=== PATIENT | female | born 1995 | race Caucasian/White ===

== ENCOUNTER 2017-09-14 06:34 | Emergency (ER) | payer BC ==
[~2017-09-14] VITALS: Ht 157.5 cm; Wt 59.5 kg
[2017-09-14 06:39] VITALS: BP 118/67; PULSE 105; RESP 18; TEMP 97.8; O2SAT 99
[2017-09-14] MEDS ORDERED: SODIUM CHLOR 0.9% 1000 ML INJ 1,000 ML IV ONE (07:08)
--- NOTE | 2017-09-14 07:08 | PD ---
HPI Chief Complaint: Flank/Kidney Pain Time Seen by Provider: 07:06 Travel History International Travel<30 days: No Contact w/Intl Traveler<30days: No Traveled to known affect area: No History of Present Illness HPI 21-year-old female came to the emergency room with her mother with history of right-sided flank pain that started suddenly this morning. Patient has been very uncomfortable and says the pain is like a burning sensation from the right flank radiating down to her right lower quadrant. Patient says she has never experienced pain like this before. She is nauseous but has not vomited. No aggravating or relieving factors identified for the pain. Vital signs are stable. She is otherwise a healthy child. She has not urinated and cannot comment on hematuria at this point. [facility] Past Medical History Narrative Medical List of her past medical, surgical, social and family history is reviewed from the nursing note. Medical History: Denies Significant Hx Diminished Hearing: No Tetanus Vaccination: Unknown Influenza Vaccination: No ?: Not LMP: 08/30/17 Past Surgical History Surgical History: No Previous Surgery Other Surgery: Yes (adnoids) Social History Alcohol Use: No Tobacco Use: No Substance Use: No Allergies-Medications (Allergen,Severity, Reaction): Coded Allergies: No Known Allergies (Verified Allergy, Unknown, 09/14/17) Comments No known drug allergies. Reported Meds & Prescriptions Reported Meds & Active Scripts Active Ibuprofen 600 Mg Tab 600 Mg PO Q6H PRN Narrative Medication List of her home medications reviewed from the nursing note Review of Systems Except as stated in HPI: all other systems reviewed are Neg Gastrointestinal: Positive: Nausea Genitourinary: Positive: Flank Pain Physical Exam Narrative GENERAL: Awake, alert, anxious, moderate to significant distress SKIN: Focused skin assessment warm/dry. HEAD: Atraumatic. Normocephalic. EYES: Pupils equal and round. No scleral icterus. No injection or drainage. ENT: No nasal bleeding or discharge. Mucous membranes pink and moist. NECK: Trachea midline. No JVD. CARDIOVASCULAR: Regular rate and rhythm. No murmur appreciated. RESPIRATORY: No accessory muscle use. Clear to auscultation. Breath sounds equal bilaterally. GASTROINTESTINAL: Abdomen soft, non-tender, nondistended. Hepatic and splenic margins not palpable. MUSCULOSKELETAL: No obvious deformities. No clubbing. No cyanosis. No edema. NEUROLOGICAL: Awake and alert. No obvious cranial nerve deficits. Motor grossly within normal limits. Normal speech. PSYCHIATRIC: Appropriate mood and affect; insight and judgment normal. Data Data Last Documented VS Vital Signs Date Time Temp Pulse Resp B/P (MAP) Pulse Ox O2 Delivery O2 Flow Rate FiO2 09/14/17 11:05 09/14/17 10:58 87 18 98 Room Air 09/14/17 06:39 97.8 Orders Orders Complete Blood Count With Diff (09/14/17 07:08) Comprehensive Metabolic Panel (09/14/17 07:08) Urinalysis - C+S If Indicated (09/14/17 07:08) Ed Urine Pregnancytest Poc (09/14/17 07:08) Ct Abd/Pel W/O Iv Contrast (09/14/17 07:08) Ecg Monitoring (09/14/17 07:08) Iv Access Insert/Monitor (09/14/17 07:08) Ketorolac Inj (Toradol Inj) (09/14/17 07:15) Sodium Chloride 0.9% Flush (Ns Flush) (09/14/17 07:15) Sodium Chlor 0.9% 1000 Ml Inj (Ns 1000 M (09/14/17 07:08) Metoclopramide Inj (Reglan Inj) (09/14/17 07:15) Morphine Inj (Morphine Inj) (09/14/17 07:30) Urine Culture (09/14/17 08:07) Nitrofurantoin Monohyd Macrocr (Macrobid (09/14/17 08:45) Us Pelvis Comp W Doppler (09/14/17 ) Ed Discharge Order (09/14/17 10:53) Labs Laboratory Tests Test 09/14/17 07:15 09/14/17 08:07 White Blood Count 6.3 TH/MM3 Red Blood Count 4.32 MIL/MM3 Hemoglobin 13.5 GM/DL Hematocrit 40.4 % Mean Corpuscular Volume 93.6 FL Mean Corpuscular Hemoglobin 31.2 PG Mean Corpuscular Hemoglobin Concent 33.3 % Red Cell Distribution Width 11.9 % Platelet Count 267 TH/MM3 Mean Platelet Volume 8.1 FL Neutrophils (%) (Auto) 57.0 % Lymphocytes (%) (Auto) 34.7 % Monocytes (%) (Auto) 5.8 % Eosinophils (%) (Auto) 1.8 % Basophils (%) (Auto) 0.7 % Neutrophils # (Auto) 3.6 TH/MM3 Lymphocytes # (Auto) 2.2 TH/MM3 Monocytes # (Auto) 0.4 TH/MM3 Eosinophils # (Auto) 0.1 TH/MM3 Basophils # (Auto) 0.0 TH/MM3 CBC Comment DIFF FINAL Differential Comment Blood Urea Nitrogen 10 MG/DL Creatinine 0.80 MG/DL Random Glucose 108 MG/DL Total Protein 7.1 GM/DL Albumin 3.6 GM/DL Calcium Level 8.7 MG/DL Alkaline Phosphatase 53 U/L Aspartate Amino Transf (AST/SGOT) 15 U/L Alanine Aminotransferase (ALT/SGPT) 21 U/L Total Bilirubin 0.5 MG/DL Sodium Level 142 MEQ/L Potassium Level 3.4 MEQ/L Chloride Level 109 MEQ/L Carbon Dioxide Level 24.8 MEQ/L Anion Gap 8 MEQ/L Estimat Glomerular Filtration Rate 89 ML/MIN Urine Collection Type VOIDED Urine Color ORANGE Urine Turbidity CLOUDY Urine pH 7.0 Urine Specific [place] 1.015 Urine Protein 30 mg/dL Urine Glucose (UA) 100 mg/dL Urine Ketones NEG mg/dL Urine Occult Blood NEG Urine Nitrite POS Urine Bilirubin NEG Urine Urobilinogen 2.0 MG/DL Urine Leukocyte Esterase TRACE Urine WBC 3-5 /hpf Urine Squamous Epithelial Cells 6-8 /hpf Urine Amorphous Sediment MOD Urine Mucus FEW /lpf Microscopic Urinalysis Comment CULTURE INDICATED MDM Medical Decision Making Medical Screen Exam Complete: Yes Emergency Medical Condition: Yes Medical Record Reviewed: Yes Differential Diagnosis Renal colic, pyelonephritis, musculoskeletal pain Narrative Course 8:57 AM blood test results are back and within acceptable limits. UA shows possibility of UTI. Have given her dose of Macrobid. CT scan has been done to rule out ureteral stone. Awaiting for the radiologist read. Patient was medicated for pain and nausea. 9:21 AM the CAT scan is suggestive of a tiny stone in the right UVJ with some hydroureter but no stranding. There is also a cystic adnexal mass on the right side. I discussed these results with the patient and her mother. They are not aware of any ovarian cysts. I have ordered an ultrasound of the pelvis to distinguish the cystic mass further. Patient upon reassessment says her pain is down to 0 at this point. 10:54 AM the ultrasound confirms a large ovarian cyst. Patient will be discharged home. She needs to follow-up with her [employer]. Procedures EKG Prior to Arrival: No Diagnosis Primary Impression: Ureteral colic Additional Impressions: Ovarian cyst Qualified Codes: N83.201 - Unspecified ovarian cyst, right side Possible urinary tract infection Referrals: Theodore Bridges MD 2 days Primary Care Physician 2 days Additional Instructions: Please follow-up with your primary care physician or a [employer] specialist for the large ovarian cyst. He would require a repeat ultrasound in about 3 months. Take the medication as per the prescription direction. Return to the ER if condition worsens or any other new concerns. Call the urologist was name and number been provided to you get an appointment to be seen. Med/Other Pt SpecificInfo: Prescription(s) given Scripts Ibuprofen (Ibuprofen) 600 Mg Tab 600 MG PO Q6H Y for Pain/Inflammation, #40 TAB 0 Refills Prov: Danny Salvador MD 09/14/17 Disposition: 01 DISCHARGE HOME Condition: Stable Danny Salvador MD Sep 14, 2017 07:08
[2017-09-14] MEDS ORDERED: METOCLOPRAMIDE HCL 10 MG/2 ML VIAL IV PUSH ONE (07:15)
[2017-09-14] MEDS ORDERED: KETOROLAC TROMETHAMINE 30 MG/ML (IVP) VIAL IV PUSH ONE (07:15)
[2017-09-14] MEDS ORDERED: MORPHINE SULFATE 4 MG/ML INJ IV PUSH ONE (07:15)
[2017-09-14] MEDS ORDERED: SODIUM CHLORIDE 0.9% FLUSH 10 ML FLUSH IVF PRN (07:15)
[2017-09-14 07:20] LABS: AUTOMATED NEUTROPHIL # 3.6 TH/MM3 (1.8-7.7); BASOPHIL % 0.7 % (0.0-2.0); EOSINOPHIL # 0.1 TH/MM3 (0-0.4); EOSINOPHIL % 1.8 % (0.0-4.0); HEMATOCRIT 40.4 % (35.0-46.0); HEMOGLOBIN 13.5 GM/DL (11.6-15.3); LYMPH % 34.7 % (9.0-44.0); LYMPHOCYTE # 2.2 TH/MM3 (1.0-4.8); MEAN CELL VOLUME 93.6 FL (80.0-100.0); MEAN CORPUSCULAR HEMOGLOBIN 31.2 PG (27.0-34.0); MEAN CORPUSCULAR HGB CONC 33.3 % (32.0-36.0); MEAN PLATELET VOLUME 8.1 FL (7.0-11.0); MONO % 5.8 % (0.0-8.0); MONOCYTE # 0.4 TH/MM3 (0-0.9); PLATELET COUNT 267 TH/MM3 (150-450); RED BLOOD COUNT 4.32 MIL/MM3 (4.00-5.30); RED CELL DISTRIBUTION WIDTH 11.9 % (11.6-17.2); WHITE BLOOD COUNT 6.3 TH/MM3 (4.0-11.0)
[2017-09-14] MEDS ORDERED: MORPHINE SULFATE 2 MG/ML SYRINGE IV ONE (07:30)
[2017-09-14 07:31] LABS: CHLORIDE 109 MEQ/L (98-107); SODIUM (NA) 142 MEQ/L (136-145)
[2017-09-14 07:35] LABS: ALBUMIN 3.6 GM/DL (3.4-5.0); BICARBONATE 24.8 MEQ/L (21.0-32.0); BLOOD UREA NITROGEN 10 MG/DL (7-18); CALCIUM 8.7 MG/DL (8.5-10.1); GLUCOSE,RANDOM 108 MG/DL (74-106)
[2017-09-14 07:38] LABS: ALT (GPT) 21 U/L (10-53); AST (GOT) 15 U/L (15-37)
[2017-09-14 07:39] LABS: GLOMERULAR FILTRATION RATE 89 ML/MIN (>89)
[2017-09-14 07:40] LABS: TOTAL BILIRUBIN ADULT 0.5 MG/DL (0.2-1.0); TOTAL PROTEIN 7.1 GM/DL (6.4-8.2)
[2017-09-14 07:41] LABS: ALKALINE PHOSPHATASE 53 U/L (45-117)
[2017-09-14 08:19] LABS: BILIRUBIN, URINE NEG (NEG); BLOOD, URINE NEG (NEG); GLUCOSE,URINE 100 mg/dL (NEG); KETONE, URINE NEG (NEG); NITRITE,URINE POS (NEG); URINE LEUKOCYTE ESTERASE TRACE (NEG)
[2017-09-14 08:25] LABS: URINE COLOR ORANGE (YELLW/STRAW)
[2017-09-14 08:27] LABS: AMORPHOUS SEDIMENT, URINE MOD; MUCUS URINE FEW /lpf (OCC)
[2017-09-14] MEDS ORDERED: NITROFURANTOIN MONOHYD MACROCR 100 MG CAP PO ONE (08:45)
--- NOTE | 2017-09-14 09:12 | RADRPT ---
EXAM DATE: 09/14/2017 8:24 AM EDT AGE/SEX: 21 years / Female INDICATIONS: Right flank pain. CLINICAL DATA: This is the patient's initial encounter. Patient reports that signs and symptoms have been present for 1 day and indicates a pain score of 1/10. MEDICAL/SURGICAL HISTORY: None. None. RADIATION DOSE: 4.46 CTDI (mGy) COMPARISON: No prior exams available for comparison. TECHNIQUE: Multiple contiguous axial images were obtained through the abdomen. Images were obtained using multiple row detector helical technique. Using dose reduction techniques, radiation dose was ke pt as low as reasonably achievable to obtain optimal diagnostic quality images. FINDINGS: The lower lungs are clear. The liver gallbladder and spleen are unremarkable The pancreas and adrenal glands appear normal Right kidney: Tiny calcifications are seen tip of the renal The largest measures less than 1 mm. Ther e is no perinephric stranding. Multiple calcifications are present in the pelvis majority with short phleboliths. I cannot entirely exclude a partially obstructing 1 to 2 mm stone. Left kidney: Similar calcifications are seen in the left kidney with the largest stone measuring 2 mm . There is a cystic mass in the right adnexa region measuring 4.3 cm. Again multiple phleboliths are present in the pelvis. There is no free fluid. CONCLUSION: 1. Mildly prominent right kidney probably related to obstruction of a tiny stone right UVJ. There is no significant perinephric stranding 2. Multiple small stones remain in both kidneys 3. 4.3 cm cystic mass right adnexa region. Electronically signed by: Rosendo Kimbrough MD 09/14/2017 9:11 AM EDT
--- NOTE | 2017-09-14 10:50 | RADRPT ---
EXAM DATE: 09/14/2017 10:31 AM EDT AGE/SEX: 21 years / Female INDICATIONS: Right sided pain x 3 hours. CLINICAL DATA: This is the patient's initial encounter. Patient reports that signs and symptoms have been present for 1 day and indicates a pain score of 10/10. MEDICAL/SURGICAL HISTORY: . Right flank and right lower quadrant pain. None. COMPARISON: No prior exams available for comparison. MEASUREMENTS: Uterus:__7.3 x 5.9 x 3.4 cm Endometrial Stripe:__5 mm Right Ovary:__ 6.6 x 5.9 x 5.7 cm Left Ovary:__ 3.6 x 2.1 x 2.2 cm FINDINGS: Uterus: The myometrium has homogeneous echotexture without mass. Endometrial Stripe: The endometrial stripe displays homogeneous echotexture. Right Ovary: Right ovarian cyst measuring 5.4 similar is by 4.7 cm. Normal flow Left Ovary: Ovary contains no mass. Follicles are present. Follicular cyst Normal flow Fluid: No free fluid. Other: None. CONCLUSION: 1. Large right ovarian cyst without free fluid. Electronically signed by: Rosendo Kimbrough MD 09/14/2017 10:48 AM EDT
[2017-09-14] MEDS ORDERED: IBUP-232 PO (10:56)
[2017-09-14 10:58] VITALS: BP 98/56; PULSE 87; RESP 18; O2SAT 98
== END 2017-09-14 11:06 | disposition home or self-care (01) ==
LOC: PHED 06:34
DX: N83.201 Unspecified ovarian cyst, right side (principal); R11.0 Nausea
CPT/HCPCS: 74176; 76856; 80053; 81001; 84703; 85025; 87086; 93975; 96361; 96374; 96375; 99285; J1885; J2270; J2765; J7030

== ENCOUNTER 2017-11-10 18:08 | Inpatient (IN) ==
--- NOTE | 2017-11-10 20:19 | ED ---
HPI General Chief Complaint: Psychiatric Symptoms Stated Complaint: Pysch Eval/VCSO/FHM Source: patient Mode of arrival: ambulatory Limitations: no limitations History of Present Illness HPI Narrative: 22-year-old white female presents emergency department as a transfer from [facility]. The patient allegedly has been feeling increasingly depressed. She states yesterday when she was driving over the bridge she contemplated stopping and jumping off. She denies any active plan currently for self-harm. She denies any homicidal ideation. No toxic ingestions. She denies any tobacco, alcohol or drugs. Currently on her menstrual cycle now. Past medical history: Ovarian cyst, kidney stones Past surgical history: Adenoidectomy Related Data Allergies Allergy/AdvReac Type Severity Reaction Status Date / Time No Known Allergies Allergy Unverified 11/10/17 18:56 Review of Systems ROS: all other systems reviewed are negative [facility] Medical History Medical History Patient denies medical problems (Acute) Social History Social History Substance History: No History of Abuse Smoking Status: Never smoker How Often Do You Have a Drink Containing Alcohol: Never Recent Travel in [facility] within the Last 8 Weeks: No Immunization History Tetanus Immunization: Unsure Exam Narrative Exam Narrative: GENERAL: Well-nourished, well-developed patient. SKIN: Warm and dry. HEAD: Normocephalic and atraumatic. EYES: No scleral icterus. No injection or drainage. ENT: No nasal drainage noted. Mucous membranes pink. Airway patent. NECK: Supple, trachea midline. Moves head freely without obvious discomfort. CARDIOVASCULAR: Regular rate and rhythm without murmurs, gallops, or rubs. RESPIRATORY: Breath sounds equal bilaterally. No accessory muscle use. GASTROINTESTINAL: Abdomen soft, non-tender, nondistended. EXTREMITIES: No cyanosis or edema. BACK: Nontender without obvious deformity. No CVA tenderness. NEURO: Patient is alert and oriented. no sensorimotor deficits. Nonfocal. Normal speech. PSYCH: No delusions. No auditory or visual hallucinations. Course Initial Documented Vital Signs Temperature 98.1 F 11/10/17 19:13 Pulse Rate 102 H 11/10/17 19:13 Respiratory Rate 16 11/10/17 19:13 Blood Pressure 131/82 11/10/17 19:13 Pulse Oximetry 98 11/10/17 19:13 Last Documented Vital Signs Temperature 98.1 F 11/10/17 19:13 Pulse Rate 102 H 11/10/17 19:13 Respiratory Rate 16 11/10/17 19:13 Blood Pressure 131/82 11/10/17 19:13 Pulse Oximetry 98 11/10/17 19:13 Medical Decision Making MDM Narrative Medical decision making narrative: I reviewed the patient's evaluation from [facility]. The patient is medically cleared. Medical Screen Exam Complete: Yes Emergency Medical Condition: Yes Differential Diagnosis Differential Diagnosis: MDM: High Differential diagnoses: Schizophrenia, schizoaffective disorder, bipolar, anxiety, depression, adjustment reaction, mood disorder NOS, ODD, depressive disorder NOS, dementia, dementia with agitation, psychosis NOS, substance induced mood disorder, DMDD, Asperger syndrome, infection,electrolyte abnormality, malingering. Mental health screening discussed with the patient. Psychiatric screen ordered. Discharge Plan Discharge Disposition Patient Disposition: 30 Still Patient Discharge Condition Condition: Stable Discharge Details Anticipated Discharge Date: 11/10/17 Diagnosis: Depression Physicians Team ED Provider: ANGÉLICA NOLAND Primary Care Provider: KRISTIAN, Attending Provider: Jeremi Diamond Discharge Interventions Interventions: ED Discharge Assessment Last Done: 11/10/17 20:00 Vital Signs Last Done: 11/10/17 19:13 Status ED Status: Left Department Discharge Information Discharge Date/Time: 11/10/17 20:00
[2017-11-10] MEDS ORDERED: LORazepam 1 MG Tablet PO PRN (22:15)
[2017-11-10] MEDS ORDERED: Aluminum/Magnesium/Simethacone Susp 30 ML UDC PO PRN (22:15)
[2017-11-10] MEDS ORDERED: Acetaminophen 325 MG Tablet PO PRN (22:15)
[2017-11-11] MEDS: Senna/Docusate Sodium 8.6/50 MG Tablet PO SCH ×2 (09:02→20:31)
[2017-11-11] MEDS ORDERED: Aluminum/Magnesium/Simethacone Susp 30 ML UDC PO PRN (10:11)
--- NOTE | 2017-11-11 10:26 | P.HPPSY ---
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 Express and informed consent means consent voluntarily given in writing, by a competent person, after sufficient explanation and disclosure of the subject matter involved to enable the person to make a knowing and willful decision without any element of force, fraud, deceit, duress, or other form of constraint or coercion. This person is 18 years of age or older, is not now known to be incompetent to consent to treatment with a guardian advocate, and does not have a health care surrogate or proxy currently making medical treatment decisions. I have found this person to be one of the following: [] Competent to provide express and informed consent, as defined above, for voluntary admission to this facility and is competent to provide express and informed consent for treatment. He/she has the consistent capacity to make well reasoned, willful, and knowing decisions concerning his or her medical or mental health treatment. The person fully and consistently understands the purpose of the admission for examination/placement and is fully capable of personally exercising all rights assured under [place] [] Incompetent to provide express and informed consent to voluntary admission, and this is incompetent to provide express and informed consent to treatment. The person must be transferred to involuntary status and a petition for a guardian advocate filed with the Circuit Court. [xxx] Refusing to provide express and informed consent to voluntary admission but is competent to provide express and informed consent for treatment. The person must be discharged or transferred to involuntary status. Form shall be completed within 24 hours of a person's arrival at the receiving facility and filed in the clinical record of each person: 1. Admitted on a voluntary basis 2. Permitted to provide express and informed consent to his/her own treatment 3. Allowed to transfer from involuntary to voluntary status 4. Prior to permitting a person to consent to his or her own treatment after having been previously found incompetent to consent to treatment. History of Present Illness Capacity: Lacks capacity (Patient lacks capacity to improve for admission patient does have capacity to sign for treatment and medications) History of Present Illness: Patient is a 22-year-old white female comes here under Barton act transferred from [facility] that Barton act dated 11/10/2017 and 1308 p.m. that document reviewed essentially states major depressive disorder wants to jump off bridge. Patient seen screen at that ED urine toxicology negative blood alcohol level negative at the present time patient sitting quietly in her room nurse Laura present throughout session patient is alert oriented calm quiet white female sitting quite still with 2+ psychomotor retardation she is clean and neat dark hair and wearing glasses. Stating that she lives alternative lifestyle that she just broke up with her significant other a few weeks ago. It appears this woman is and has children. And is unwilling to leave her marital relationship this is devastated the patient. This appears to be in the first fairly intense relationship the patient has had. This is led to increased depression with crying spells, marked sad mood, initial and mid insomnia with a.m. energy, decreased energy, decreased concentration and attention, there is some increased irritability. She denies voices or visions with this. She denies any self-medication alcohol or other drugs. He denies any other prior psychotropic medications psychiatric contact or psychiatric hospitalizations. She does acknowledge the suicidal ideation with intent to jump off a bridge. Of interest she said she did see some type of her counselor back when she was 7 or 8 years old during the divorce of her parents. She lives now with her mother and her younger sister. 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 She denies alcohol or drug use. Denies any physical or sexual abuse. She denies any legal issues or incarcerations. At the present time patient does meet criteria for further assessment under the Barton act I will do first opinion request second opinion. I feel she has capacity to sign for medication. We did discuss medications we will start patient on Zoloft 25 mg daily continue to observe and assess plan would be to refer to mental health in the community and - Inpatient Certification I certify that the inpatient services were ordered in accordance with Medicare regulations governing the order. This includes certification that hospital inpatient services are reasonable and necessary and in the case of services not specified as inpatient-only under 42 CFR 419.22(n), that they are appropriately provided as inpatient services in accordance to with the 2-midnight benchmark under 43 CFR 412.3(e) I certify that inpatient psychiatric hospital services are medically necessary. Evaluation and treatment and/or diagnostic testing are expected to improve the patient's condition. The patient needs on a daily basis, active treatment furnished directly by or requiring the supervision of inpatient psychiatric facility personnel. Estimated Total Length of Stay (Days): 5 Plans for Post Hospital Care: Home Review of Systems All other systems reviewed negative except as stated in HPI Comments: Patient history of passing a kidney stone a few weeks ago, with cyst in kidney [facility] - History History Provided By: Patient - Medical History Medical History: Medical History (Last Updated 11/11/17 @ 04:23 by Karin Berry RN) Kidney stones Ovarian cyst Onset Date: ~07/21/17 Patient denies medical problems - Tobacco History Second Hand Smoke Exposure: No Smoking Status: Never smoker - Alcohol History How Often Do You Have a Drink Containing Alcohol: Never - Substance Use History Substance History: No History of Abuse - Travel History Recent Travel in the [facility] Within the Last 8 Weeks: No - Immunization History Tetanus Immunization: Unsure Hx Influenza Vaccine This Season: No Quality Measures - Psychiatric History Psychological trauma history: Patient denies Violence risk to others in the last 6 months: Low Violence risk to self in the last 6 months: Patient has suicidal ideation with possible of jumping off of a bridge for the past few weeks - Substance Abuse History Drug or alcohol use in the past 12 months: Patient denies - Patient Strengths Patient's strengths (minimum of 2): Patient verbal able access healthcare has supportive family Medications and Allergies Active Medications: Active Medications Acetaminophen (Tylenol) 650 mg PO Q4H PRN PRN Reason: Pain 1-5 or Temp >101F Al Hydrox/Mg Hydrox/Simethicone (Mag-Al Plus Susp Liq) 30 ml PO Q6H PRN PRN Reason: DYSPEPSIA Last Admin: 11/11/17 09:02 Dose: 30 ml Al Hydrox/Mg Hydrox/Simethicone (Mag-Al Plus Susp Liq) 30 ml PO Q6H PRN PRN Reason: DYSPEPSIA Al Hydroxide/Mg Hydroxide (Milk Of Magnesia Liq) 30 ml PO Q12H PRN PRN Reason: Mild Constipation Diphenhydramine HCl (Benadryl) 50 mg PO HS PRN PRN Reason: INSOMNIA Hydroxyzine HCl (Atarax) 50 mg PO Q6H PRN PRN Reason: ANXIETY Lorazepam (Ativan) 1 mg PO Q6H PRN PRN Reason: MODERATE TO SEVERE ANXIETY Lorazepam (Ativan Inj) 1 mg IM Q6H PRN PRN Reason: MODERATE TO SEVERE ANXIETY Senna/Docusate Sodium (Tresa-Colace) 1 tab PO BID LAQUITA Last Admin: 11/11/17 09:02 Dose: Not Given Allergies Allergy/AdvReac Type Severity Reaction Status Date / Time Bleach (Sodium Hypochlorite) Allergy Rash Verified 11/11/17 04:04 Home Medications Medication Instructions Recorded Confirmed Type No Known Home Medications 11/11/17 11/11/17 History Exam Vital signs: Vital Signs 11/10/17 19:13 11/11/17 02:12 Temperature 98.1 F 98.2 F Pulse Rate 102 H 96 H Respiratory Rate 16 17 Blood Pressure 131/82 129/84 Pulse Oximetry 98 98 Intake & Output 11/10/17 11/11/17 11/11/17 18:59 06:59 18:59 Weight 56.699 kg 58.4 kg Other: Weight On Admission 58.4 kg Narrative: Patient seen in her room with nurse Laura, patient no acute distress, patient in no respiratory distress, no complaints of chest pain, no complaints of abdominal pain, patient moving all 4 extremities without difficulty Mental Status Examination Appearance: Appropriate Consciousness: Alert Orientation: x4 Motor Activity: Normal gait Speech: Unremarkable Language: Adequate Fund of Knowledge: Adequate Attention and Concentration: Adequate Memory: Unremarkable Mood: Sad Affect: Other (Decreased range and intensity) Thought Process & Associations: Intact Thought Content: Appropriate Hallucination Type: None Delusion Type: None Suicidal Ideation: Yes (Vague today but had thoughts of jumping off a bridge) Suicidal Plan: Yes (Thoughts of jumping off a bridge) Suicidal Intention: Yes (Denies intent today) Homicidal Ideation: No Homicidal Plan: No Homicidal Intention: No Insight: Adequate Judgment: Adequate Assessment and Plan - Assessment (1) Major depressive disorder, recurrent severe without psychotic features Code(s): F33.2 - Major depressive disorder, recurrent severe without psychotic features Status: Acute - Plan Plan: Estimated LOS: [] days Patient remains significantly depressed while denying suicidality denying that she would take the suicide pill she did have thoughts of jumping off the bridge in the past 1-2 days. This may food she does meet criteria for further observation and assessment under the Barton act thus I will do first opinion request second opinion I feel she does have capacity. We will start patient on Zoloft 25 mg daily Justification for Continued Inpatient Stay: At this time patient would decompensate a place to a lower level of care Discharge Planning: Probable return home Request Healthcare Surrogate/Guardian Advocate?: No
[2017-11-11] MEDS: Sertraline 50 MG Tablet PO SCH (12:42)
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
[2017-11-12] MEDS: Sertraline 50 MG Tablet PO SCH (08:24)
[2017-11-12] MEDS: Senna/Docusate Sodium 8.6/50 MG Tablet PO SCH (08:25)
[2017-11-12 12:03] LABS: Anion Gap 6 meq/L (5-15); Blood Urea Nitrogen 6 mg/dL (7-18); Calcium 9.2 mg/dL (8.5-10.1); Carbon Dioxide 26.7 meq/L (21.0-32.0); Chloride 108 meq/L (98-107); Cholesterol 162 mg/dL (120-200); Glomerular Filtration Rate Greater Than 89 mL/min (>89); Glucose,Random 79 mg/dL (74-106); Potassium 4.5 meq/L (3.5-5.1); Sodium 141 meq/L (136-145); Triglycerides 56 mg/dL (42-150)
[2017-11-12 12:05] LABS: Chol/HDL Ratio 2.36 Ratio; HDL Cholesterol 68.6 mg/dL (40.0-60.0); LDL Cholesterol,Calculated 82 mg/dL (0-99)
--- NOTE | 2017-11-12 14:00 | P.DSPSY ---
Psychiatry Discharge Summary Inpatient Psychiatric care?: Yes Advance Directives: No Mental Health Advance Directive: No Health Care Proxy: No - Admission Admission Date: November 10, 2017 19:39 - Admission Diagnosis (1) Major depressive disorder, recurrent severe without psychotic features Code(s): F33.2 - Major depressive disorder, recurrent severe without psychotic features Brief History: Patient is a 22-year-old white female comes here under Barton act transferred from [facility] that Barton act dated 11/10/2017 and 1308 p.m. that document reviewed essentially states major depressive disorder wants to jump off bridge. Patient seen screen at that ED urine toxicology negative blood alcohol level negative at the present time patient sitting quietly in her room nurse Laura present throughout session patient is alert oriented calm quiet white female sitting quite still with 2+ psychomotor retardation she is clean and neat dark hair and wearing glasses. Stating that she lives alternative lifestyle that she just broke up with her significant other a few weeks ago. It appears this woman is and has children. And is unwilling to leave her marital relationship this is devastated the patient. This appears to be in the first fairly intense relationship the patient has had. This is led to increased depression with crying spells, marked sad mood, initial and mid insomnia with a.m. energy, decreased energy, decreased concentration and attention, there is some increased irritability. She denies voices or visions with this. She denies any self-medication alcohol or other drugs. He denies any other prior psychotropic medications psychiatric contact or psychiatric hospitalizations. She does acknowledge the suicidal ideation with intent to jump off a bridge. Of interest she said she did see some type of her counselor back when she was [age] years old during the divorce of her parents. She lives now with her mother and her younger sister. 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 She denies alcohol or drug use. Denies any physical or sexual abuse. She denies any legal issues or incarcerations. At the present time patient does meet criteria for further assessment under the Barton act I will do first opinion request second opinion. I feel she has capacity to sign for medication. We did discuss medications we will start patient on Zoloft 25 mg daily continue to observe and assess plan would be to refer to mental health in the community and Tobacco Use In Past 30 Days: No How Often Do You Have a Drink Containing Alcohol: Never Hospital Course: Patient's hospital course was uneventful. Patient did have good social talking with a counselor that helped her organize her feelings related to the relationship. She now feels more comfortable with discussing it with her ex- girlfriend with her family. Today patient denies suicidality homicidality voice or visions. Is able contract to do no harm. Patient states she will be staying with her grandparents for a while when she leaves. The stomach feel patient reached maximum benefit of this hospitalization patient to be discharged today to herself with Rx times a month follow-up [facility] outpatient medication management and counseling - Discharge Discharge Date: 11/12/17 - Discharge Diagnosis (1) Major depressive disorder, recurrent severe without psychotic features Code(s): F33.2 - Major depressive disorder, recurrent severe without psychotic features Status: Acute Discharge Disposition: Home - Discharge Instructions Discharge Diet: Regular Diet Activities You Can Perform: Regular- No Restrictions - Discharge Time > 30 minutes Mental Status Examination Appearance: Appropriate Consciousness: Alert Orientation: x4 Motor Activity: Normal gait Speech: Unremarkable Language: Adequate Fund of Knowledge: Adequate Attention and Concentration: Adequate Memory: Unremarkable Mood: Sad Affect: Other (Decreased range and intensity) Thought Process & Associations: Intact Thought Content: Appropriate Hallucination Type: None Delusion Type: None Suicidal Ideation: Yes (Vague today but had thoughts of jumping off a bridge) Suicidal Plan: Yes (Thoughts of jumping off a bridge) Suicidal Intention: Yes (Denies intent today) Homicidal Ideation: No Homicidal Plan: No Homicidal Intention: No Insight: Adequate Judgment: Adequate Discharge/Advance Care Plan - Results Vital Signs: Last Vital Signs Temp 97.9 F 11/12/17 05:23 Pulse 56 L 11/12/17 05:23 Resp 16 11/12/17 05:23 BP 112/77 11/12/17 05:23 Pulse Ox 97 11/12/17 05:23 Lab Results: Abnormal Lab Results 11/12/17 11:07 Sodium 141 Potassium 4.5 Chloride 108 H Carbon Dioxide 26.7 Anion Gap 6 BUN 6 L Creatinine 0.77 Estimated GFR Greater than 89 Random Glucose 79 Calcium 9.2 Triglycerides 56 Cholesterol 162 LDL Cholesterol, Calc 82 HDL Cholesterol 68.6 H Cholesterol/HDL Ratio 2.36 Laboratory Results Triglycerides 56 mg/dL (42-150) 11/12/17 11:07 Cholesterol 162 mg/dL (120-200) 11/12/17 11:07 LDL Cholesterol, Calc 82 mg/dL (0-99) 11/12/17 11:07 HDL Cholesterol 68.6 mg/dL (40.0-60.0) H 11/12/17 11:07 Summary of Procedures: None done Pending Results: None - Medications Number of antipsychotic medications at discharge: 0 - Discharge Care Plan Goals to Promote Your Health: * To prevent worsening of your condition and complications * To maintain your health at the optimal level Directions to Meet Your Goals: Take your medications as prescribed Follow your dietary instruction Follow activity as directed Keep your appointments as scheduled Take your immunizations and boosters as scheduled If your symptoms worsen call your PCP, if no PCP go to Urgent Care Center or Emergency Room For 13/10 questions related to your inpatient stay or results of tests pending at discharge, please contact Dr. Glenn Thompson MD at Smoking is Dangerous to Your Health. Avoid second hand smoking
== END 2017-11-12 17:00 | disposition home or self-care (01) ==
LOC: NEPJ 18:08 → NEDA 19:39 → H260 20:01
PROVIDERS: ADMIT Psychiatry & Neurology Psychiatry; ATTEND Psychiatry & Neurology Psychiatry
DX: F33.2 Major depressive disorder, recurrent severe without psychotic features